=== PATIENT | female | born 1995 | race Caucasian/White ===

== ENCOUNTER 2024-06-19 10:28 | Outpatient (CLI) | payer OTHER, SELFPAY ==
--- NOTE | ~2024-06-19 | US_ITS ---
EXAMINATION: US OB <= 14 weeks fetus DATE: 06/19/2024 14:53 CDT INDICATION: Amenorrhea COMPARISON: 01/10/2024 TECHNIQUE: Real-time transabdominal obstetric ultrasound. FINDINGS: Last muscle. Is given as 04/14/2024 1 Estimated date of delivery by last menstrual period is 01/19/2025 The uterus measures 10.8 x 5.7 x 6.7 cm. A gestational sac is identified within the uterus. A tear shaped focus of decreased echogenicity is identified adjacent to the gestational sac measuring 21 x 6.9 x 18 mm, consistent with a perigestational hemorrhage for which follow-up is suggested. A pole is identified, with a crown-rump length that measures 2.4 cm, corresponding to an approx imate gestational age of 9 weeks and 1 day. A well-formed yolk sac is identified cardiac activity is identified at a rate of 180 bpm. The right ovary measures 2.9 x 2.6 x 3.6 cm. The left ovary measures 4.0 x 2.6 x 2.9 cm. Estimated date of delivery by ultrasound is 01/21/2025 IMPRESSION: Single intrauterine gestation with an approximate gestational age of 9 weeks and 1 day, with ca rdiac activity identified. Small perigestational hemorrhage for which follow-up is suggested. Reviewed, dictated and finalized at location A. IMPRESSION: Single intrauterine gestation with an approximate gestational age of 9 weeks an d 1 day, with cardiac activity identified. Small perigestational hemorrhage for which follow-up is suggested.
== END 2024-06-19 10:29 | disposition home or self-care (01) ==
LOC: MICIMG 10:29
PROVIDERS: PCP Nurse Practitioner Obstetrics & Gynecology; Visit Provider Nurse Practitioner Obstetrics & Gynecology
DX: O46.8X9 Other antepartum hemorrhage, unspecified trimester (principal); N91.2 Amenorrhea, unspecified; Z3A.00 Weeks of gestation of pregnancy not specified
CPT/HCPCS: 76801

== ENCOUNTER 2024-10-15 10:34 | Outpatient (RCR) | payer OTHER, SELFPAY ==
[2024-10-15 10:57] LABS: Hematocrit 36.7 % (37.0-47.0); Hemoglobin 12.3 g/dL (12.0-15.0); Mean Corpuscular HGB Conc 33.5 g/dl (32-36); Mean Corpuscular Hemoglobin 31.1 pg (26-34); Mean Corpuscular Volume 92.7 fl (80-100); Platelet Count Result 234 k/mm3 (150-375); Red Blood Count 3.96 M/mm3 (4.2-5.4); White Blood Count 14.5 K/mm3 (4.5-10.0)
[2024-10-17] MEDS: RHO(D) IMMUNE GLOBULIN 300 MCG/2 ML SYRINGE IM (10:17)
== END 2025-01-13 23:59 | disposition home or self-care (01) ==
LOC: ANHLAB 10:34
PROVIDERS: Visit Provider Obstetrics & Gynecology
DX: Z29.13 Encounter for prophylactic Rho(D) immune globulin (principal); O36.0190 Maternal care for anti-D [Rh] antibodies, unspecified trimester, not applicable or unspecified; Z3A.00 Weeks of gestation of pregnancy not specified
CPT/HCPCS: 36415; 85027; 85461; 86850; 86900; 86901; 90384; J2790

== ENCOUNTER 2024-10-31 08:21 | Outpatient (CLI) | payer OTHER, SELFPAY ==
--- OUTSIDE RECORDS SUMMARY | 2024-10-31 08:30 | XMS_ITS | Clinical Summary ---
Author Organization [facility] Health Address [address] [address] Care Team Providers Care Collection Systems Modeler Name Role Phone Unavailable Primary Care Provider Unavailabl e Source Comments [facility],non-owned Affiliates and Associated Physician Practices is amultiple site organization consisting of ambulatory clinics and hospital sitesin [place], [place], [place] and [place]. This disclosure is being madepursuant to the Care Everywhere program and may not contain all information available regarding this patient. Last updated 17.[facility] Allergies No known active allergies Encounters Date Type Department Care Team Description 09/17/2024 8:12 AM CDT - 09/17/2024 11:59 PM CDT [facility] [address] [place] [phone] Darian Villarreal MD Discharge Disposition: Home or Self Care 08/26/2024 Telephone [facility] [address] [place] [address]51 Ban Abraham RN Results (NIPT) 08/19/2024 11:11 AM CDT - 08/19/2024 11:59 PM CDT Hospital Encounter [facility] [address] [place] [phone] Bayron Colon MD Discharge Disposition: Home or Self Care 08/16/2024 Travel from Last 3 Months Social History Tobacco Use Types Packs/Day Years Used Date Smoking Tobacco: Never Assessed Estimated Date of Delivery Comme nts Yes 01/19/2025 Based on last me nstrual period of 04/14/2024 Sex and Gender Information Value Date Recorded Sex Assigned at Not on file Legal Sex Female 8:17 AM CDT Gender Identity Not on file Sexual Orientation Not on file Plan of Treatment Health Maintenance Due Date Last Done Comments HIV SCREENING 06/09/2010 HEPATITIS C SCREENING 06/05/2013 DTAP/TDAP/TD VACCINES (1 - Tdap) 06/09/2014 HEPATITIS B VACCINE (1 of 3 - 19+ 3-dose series) 06/09/2014 PAP SMEAR 06/09/2016 HPV VACCINE (1 - 3-dose SCDM series) 06/09/2022 COVID-19 VACCINE (1 - 2023-2 5 season) 2023 DEPRESSION SCREENING 04/10/2024 OB-ONE HOUR GLUCOSE 10/13/2024 OB-TDAP CURRENT 10/20/2024 OB-RHOGAM INJECTION 10/27/2024 INFLUENZA VACCINE (#1) 2024 Respiratory Syncytial Virus (RSV) Vaccine Pt: or over 60 yrs (1 - Risk 1-dose series) 12/09/2024 ZOSTER VACCINE (1 of 2) 06/09/2045 HIB VACCINE Aged Out No longer eligi ble based on patient's age to complete this topic MENINGOCOCCAL (Group B) VACC INE SHARED DECISION-MAKING Aged Out No longer eligibl e based on patient's age to complete this topic MENINGOCOCCAL GROUPS A/C/Y/W VACCINE Aged Out No longer eligible b ased on patient's age to complete this topic PNEUMOCOCCAL VACCINE Aged Out No long er eligible based on patient's age to complete this topic Procedures Procedure Name Priority Date/Time Associated Diagnosis Comments SONOGRAM - COMPLETE Routine 09/17/2024 8 :04 AM CDT Encounter for follow-up ultrasound of anatomy (HCC) Encounter for ultrasound to assess growth (HCC) 22 weeks gestation of (HCC) SONOGRAM - COMPLETE Routine 08/19/2024 1 1:05 AM CDT Encounter for anatomic survey (HCC) Abnormal genetic test during from Last 3 Months Results * SONOGRAM - COMPLETE (09/17/2024 8:04 AM CDT) Only the most recent of2 resultswithin the time period is included. Linked Results Indication ======== Incomplete Anatomy Survey History ====== OB History 1. Para 0 Lab Tests Test Date Result NIPT Low risk, Female Maternal Assessment Physical Exam Height 168 cm, 5 ft 6 in. Weight 91 kg, 201 lb. Initial weight 83 kg, 182 lb. BMI 32.44 kg/m . Initial BMI 29.38 kg/m . Weight gain 9 kg, 19 lb Method ====== Transabdominal ultrasound. View: Good view ========= Mancilla . Number of fetuses: 1 Dating ====== Date Details Gest. age YESENIA LMP 04/14/2024 22 w + 2 d 01/19/2025 U/S 09/17/2024 based upon AC, BPD, Femur, HC 22 w + 1 d 01/20/2025 Assigned dating based on the LMP, selected on 08/19/2024 22 w + 2 d 01/19/2025 General Evaluation Cardiac activity present. FHR 134 bpm. Presentation: breech Placenta: Placental site: anterior Umbilical cord: Cord vessels: 3 vessel cord - previously documented. Insertion site: normal insertion - previously documented Amniotic fluid: Amount of AF: normal. MVP 5.7 cm Biometry BPD 52.8 mm 22w 0d 37% Hadlock HC 193.0 mm 21w 4d 12% Hadlock AC 176.2 mm 22w 4d 50% Hadlock Femur 38.5 mm 22w 2d 41% Hadlock HC / AC 1.10 Weight Calculation: EFW 495 g 45% Hadlock EFW (lb,oz) 1 lb 1 oz EFW by Hadlock ([id number]) appropriate Growth Overview Exam date GA BPD (mm) HC (mm) AC (mm) FL (mm) HL (mm) EFW (g) 08/19/2024 18w 1d 39.6 45% 143.9 18% 130.8 63% 27.6 56% 28.5 90% 239 61% 09/17/2024 22w 2d 52.8 37% 193 12% 176.2 50% 38.5 41% 495 45% Anatomy The following structures appear normal: Head / Neck Cranium. Face Lips. Profile. Nose. Heart / Thorax 4-chamber view. RVOT view. LVOT view. 5-kbfduj-kuirqwv view. Bicaval view. Ductal arch view. Interventricular septum. Great vessels. Right lung. Left lung. Abdomen Stomach. Kidneys. Bladder. Genitals. Spine Sacral spine. Extremities / Skeleton Hands. Right arm. Left foot. The following structures were documented previously: Head / Neck Lateral ventricles. Choroid plexus. Midline falx. Cavum septi pellucidi. Cerebellum. Cisterna magna. Heart / Thorax 3-vessel view. Situs. Aortic arch view. Diaphragm. Abdomen Cord insertion. Spine Cervical spine. Thoracic spine. Lumbar spine. Extremities / Skeleton Left arm. Legs. Right foot. sex: female. Impression ========= Single, live, intrauterine at 22w 2d The size & amniotic fluid volume are normal. No malformations were seen within the limitations of ultrasound. Follow-up ======== as clinically indicated Coding ====== Procedures 44850: US Preg Uterus Follow Up [employer] PACS Anatomical Region Laterality Modality Other 09/17/2024 8:04 AM CDT Keenan Sosa MD [facility] ORDERABLES Edited Result - Final from Last 3 Months Insurance [facility]
[2024-10-31 10:35] LABS: Glucose 1 Hour PP 50gm Dose 154 mg/dL
== END 2024-10-31 08:22 | disposition home or self-care (01) ==
LOC: ANHLAB 08:24
PROVIDERS: Visit Provider Obstetrics & Gynecology
DX: Z34.90 Encounter for supervision of normal pregnancy, unspecified, unspecified trimester (principal)
CPT/HCPCS: 36415; 82947

== ENCOUNTER 2024-11-07 07:44 | Outpatient (CLI) | payer OTHER, SELFPAY ==
--- OUTSIDE RECORDS SUMMARY | 2024-11-07 07:48 | XMS_ITS | Clinical Summary ---
Author Organization [facility] Health Address [address] [place] [address] Care Team Providers Care Car Rental Sales Assistant Name Role Phone Unavailable Primary Care Provider Unavailabl e Source Comments [facility],non-owned Affiliates and Associated Physician Practices is amultiple site organization consisting of ambulatory clinics and hospital sitesin [place], [place], [place] and [place]. This disclosure is being madepursuant to the Care Everywhere program and may not contain all information available regarding this patient. Last updated 17.[facility] Allergies No known active allergies Encounters Date Type Department Care Team Description 09/17/2024 8:12 AM CDT - 09/17/2024 11:59 PM CDT Hospital Encounter [facility] Maternal & Care [address] [place] [phone] Darian Villarreal MD Discharge Disposition: Home or Self Care 08/26/2024 Telephone [facility] Maternal & Care [address] [place] [address] [phone] Ban Abraham RN Results (NIPT) 08/19/2024 11:11 AM CDT - 08/19/2024 11:59 PM CDT Hospital Encounter [facility] Maternal & Care [address] [place] [address] [phone] Bayron Colon MD Discharge Disposition: Home or [...] 1 lb 1 oz EFW by Hadlock ([id number]) appropriate Growth Overview Exam date GA BPD [...] Thorax 4-chamber view. RVOT view. LVOT view. 7-diticp-bmiapka view. Bicaval view. Ductal arch view. Interventricular [...] ======== as clinically indicated Coding ====== Procedures [id number]: US Preg Uterus Follow Up [employer] PACS Anatomical Region Laterality Modality Other 09/17/2024 8:04 AM CDT Keenan Sosa MD [facility] ORDERABLES Edited Result - Final from Last 3 Months Insurance [facility]
[2024-11-07 08:15] LABS: Glucose Fasting Gestational 101 mg/dL (>/=95)
[2024-11-07 10:23] LABS: Glucose 1 Hour Gest 135 mg/dL (>/=180)
[2024-11-07 11:31] LABS: Glucose 2 Hour Gest 135 mg/dL (>/= 155)
[2024-11-07 11:59] LABS: Glucose 3 Hour Gest 131 mg/dL (>/=140)
== END 2024-11-07 07:45 | disposition home or self-care (01) ==
LOC: ANHLAB 07:46
PROVIDERS: Visit Provider Nurse Practitioner Obstetrics & Gynecology
DX: Z34.90 Encounter for supervision of normal pregnancy, unspecified, unspecified trimester (principal)
CPT/HCPCS: 36415; 82951; 82952

== ENCOUNTER 2024-12-10 09:32 | Outpatient (CLI) | payer OTHER, SELFPAY ==
--- NOTE | ~2024-12-10 | US_ITS ---
EXAMINATION: US OB follow up w BPP DATE: 12/10/2024 11:36 INDICATION: Nonreactive nonstress test during third trimester . Assess biophysical profile and amniotic fluid index. TECHNIQUE: Real-time pelvic ultrasound was performed. The interpreting radiologist was not present for the study. COMPARISON: None. FINDINGS: There is a single living fetus in vertex presentation. The placenta is anterior and not low-lying. heart rate is 131 beats per minute (bpm). Normal amniotic fluid index of 9.9 cm (5th%-95%: 8.1-24.8 cm at 34 weeks estimated gestational age) Biophysical profile performed by the technologist: breathing (30 sec sustained breathing in 30 minutes): 2 out of 2 movement (3 gross body movements in 30 minutes): 2 out of 2 tone (one episode of gllkrix-obqvuuzgc-bwrpbym limb movement): 2 out of 2 Amniotic fluid pocket (2 cm): 2 out of 2 Total score: 8 out of 8 IMPRESSION: 1. Single living fetus in vertex presentation with heart rate of 131 bpm. 2. Biophysical profile 8 out of 8. 3. Normal amniotic fluid index of 9.9 cm. Reviewed, dictated and finalized at location A.
--- OUTSIDE RECORDS SUMMARY | 2024-12-10 09:50 | XMS_ITS | Clinical Summary ---
Author Organization [facility] Health Address [address] [place] [address] Care Team Providers Care Mass Communications Professor Name Role Phone Unavailable Primary Care Provider Unavailabl e Source Comments [facility],non-owned Affiliates and Associated Physician Practices is amultiple site organization consisting of ambulatory clinics and hospital sitesin [place], [place], [place] and [place]. This disclosure is being madepursuant to the Care Everywhere program and may not contain all information available regarding this patient. 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 Discharge Disposition: Home or Self Care 09/17/2024 8:12 AM CDT - 09/17/2024 11:59 PM CDT Hospital Encounter [facility] Maternal & Care [address] [place] [phone] Darian Villarreal MD Discharge Disposition: Home or Self Care from Last 3 Months Social History Tobacco [...] VACCINE (1 - 3-dose SCDM series) 06/09/2022 DEPRESSION SCREENING 04/10/2024 OB-ONE HOUR GLUCOSE 10/13/2024 OB-TDAP CURRENT 10/20/20242016, 10/14/2005 OB-RHOGAM INJECTION 10/27/2024 COVID-19 VACCINE (3 - 2024-2 6 season) 2024 07/27/2020, 07/05/2020 INFLUENZA VACCINE (#1) 2024 Respiratory Syncytial Virus (RSV) Vaccine Pt: or over 60 yrs (1 - Risk 1-dose series) 12/09/2024 OB-GROUP B STREP SCREEN 12/15/2024 ZOSTER VACCINE (1 of 2) 06/09/2045 HIB VACCINE Aged Out No longer eligi ble based on patient's age to complete this topic MENINGOCOCCAL (Group B) VACCINE SHARED DECISION-MAKING Aged Out No longer eligible based on patient's age to complete this topic MENINGOCOCCAL GROUPS A/C/Y/W VACCINE Aged Out No longer eligible b ased on patient's age to complete this topic PNEUMOCOCCAL VACCINE Aged Out No long er eligible based on patient's age to complete this topic Procedures Procedure Name Priority Date/Time Associated Diagnosis Comments SONOGRAM - COMPLETE Routine 12/06/2024 3 :48 PM CDT Encounter for ultrasound to assess growth (HCC) 33 weeks gestation of (HCC) SONOGRAM - COMPLETE Routine 09/17/2024 8 :04 AM CDT Encounter for follow-up ultrasound of anatomy (HCC) Encounter for ultrasound to assess growth (HCC) 22 weeks gestation of (HCC) from Last 3 Months Results * Sonogram - Complete (12/06/2024 3:48 PM CDT) Only the most recent of2 resultswithin the time period is included. Linked Results Indication ======== Large for dates Size/date discrepancy History ====== OB History 1. Para 0 Lab Tests Test Date Result NIPT Low risk, Female Maternal Assessment Physical Exam Height 168 cm, 5 ft 6 in. Weight 100 kg, 220 lb. Initial weight 83 kg, 182 lb. BMI 35.51 kg/m . Initial BMI 29.38 kg/m . Weight gain 17 kg, 38 lb Method ====== Transabdominal ultrasound. View: Sufficient ========= Mancilla . Number of fetuses: 1 Dating ====== Date Details Gest. age YESENIA LMP 04/14/2024 33 w + 5 d 01/19/2025 Stated YESENIA 33 w + 5 d 01/19/2025 U/S 12/06/2024 based upon AC, BPD, Femur, HC 36 w + 1 d 01/02/2025 Assigned dating based on the LMP, selected on 08/19/2024 33 w + 5 d 01/19/2025 General Evaluation Cardiac activity present. FHR 133 bpm. Presentation: cephalic Placenta: Placental site: anterior no previa Amniotic fluid: Amount of AF: normal. MVP 6.3 cm. RANDALL 18.5 cm. Q1 6.3 cm, Q2 4.2 cm, Q3 4.2 cm, Q4 3.8 cm Biometry BPD 90.8 mm 36w 6d 99% Hadlock HC 327.5 mm 37w 1d 92% Hadlock AC 329.2 mm 36w 6d >99% Hadlock Femur 65.6 mm 33w 6d 42% Hadlock Humerus 57.4 mm 33w 2d 50% Emilio HC / AC 0.99 Weight Calculation: EFW 2,852 g 96% Hadlock EFW (lb,oz) 6 lb 5 oz EFW by Hadlock ([id number]) LGA Growth Overview Exam date GA BPD (mm) HC (mm) AC (mm) FL (mm) HL (mm) EFW (g) 08/19/2024 18w 1d 39.6 45% 143.9 18% 130.8 63% 27.6 56% 28.5 90% 239 61% 09/17/2024 22w 2d 52.8 37% 193 12% 176.2 50% 38.5 41% 495 45% 12/06/2024 33w 5d 90.8 99% 327.5 92% 329.2 >99% 65.6 42% 57.4 50% 2852 96% Anatomy The following structures appear normal: Abdomen Stomach. Kidneys. Bladder. The following structures were documented previously: Head / Neck Cranium. Lateral ventricles. Choroid plexus. Midline falx. Cavum septi pellucidi. Cerebellum. Cisterna magna. Thalami. Nuchal fold. Face Lips. Profile. Nose. Nasal bone. Orbits. Heart / Thorax 4-chamber view. RVOT view. LVOT view. 3-vessel view. 6-qybitd-zosmlrr view. Situs. Aortic arch view. Bicaval view. Ductal arch view. Great vessels. Right lung. Left lung. Diaphragm. Abdomen Cord insertion. Bowel. Genitals. Spine Cervical spine. Thoracic spine. Lumbar spine. Sacral spine. Extremities / Skeleton Arms. Hands. Legs. Feet. sex: female. Impression ========= Here today for interval growth ultrasounds secondary to who size/ dates discrepancy (size greater than dates). As per patient she had a positive 1 hour GCT but -3 hour GTT at her primary OB providers office. Single, live, intrauterine at 33w 5d The size is suspected LGA. The amniotic fluid volume is normal. Normal appearing anterior placenta. No major malformations were seen within the limits of ultrasound. The anatomical survey was previously completed. Comment ======== The biometry is showing good interval growth in the estimated weight of the suspected LGA. This is most likely a constitutionally large fetus in light of her negative glucose screen but GDM can not always be ruled out with certainty. The amniotic fluid was normal and there were good movements noted. Both ultrasound and screening/testing have their limitations in detecting all congenital anomalies and chromosomal abnormalities/inher ited disorders or genetic syndromes. Follow-up ======== To return in 4 weeks for growth assessment due to suspected LGA. Pre term labor and preeclampsia precautions along with kick counts. Thank you for allowing us to partake in your patient's care. Coding ====== Diagnoses O36.63X0: Maternal care for excessive growth Procedures 11061: US Preg Uterus Follow [facility] PACS Anatomical Region Laterality Modality Other 12/06/2024 3:48 PM CDT us Keenan Sosa MD [facility] ORDERABLES Edited Result - Final from Last 3 Months Insurance [facility] Address: [facility] [address] [place] [address]
[2024-12-10 10:04] VITALS: BP 120/73; PULSE 82
[2024-12-10 10:13] LABS: Hematocrit 35.9 % (37.0-47.0); Hemoglobin 12.0 g/dL (12.0-15.0); Immature Granulocyte Percent A 0.7 % (0-0.5); Lymphocytes Absolute Auto 1.93 K/mm3 (0.9-3.2); Mean Corpuscular HGB Conc 33.4 g/dl (32-36); Mean Corpuscular Hemoglobin 30.8 pg (26-34); Mean Corpuscular Volume 92.3 fl (80-100); Nucleated Red Blood Cells Absolute Auto 0.000 K/mm3 (0.0-0.012); Nucleated Red Blood Cells Perc 0.0 % (0.0-0.2); Platelet Count Result 203 k/mm3 (150-375); Red Blood Count 3.89 M/mm3 (4.2-5.4); White Blood Count 11.6 K/mm3 (4.5-10.0)
[2024-12-10 10:16] VITALS: BP 105/75; PULSE 75
[2024-12-10 10:33] LABS: Alanine Aminotransferase 16 U/L (6-35); Albumin Level 3.6 g/dL (3.5-5.1); Alkaline Phosphatase 64 U/L (38-126); Anion Gap 8 mmol/L (4-12); Aspartate Amino Transferase 25 U/L (14-36); Bilirubin,Total < 0.1 mg/dL (0.2-1.3); Blood Urea Nitrogen 3 mg/dL (7-17); Calcium 9.0 mg/dL (8.4-10.2); Carbon Dioxide 19 mmol/L (22-30); Chloride 107 mmol/L (98-107); Estimated Glomerular Filt Rate > 60; Glucose 98 mg/dL (65-110); Potassium 3.8 mmol/L (3.4-5.0); Sodium 134 mmol/L (137-145); Total Protein 6.2 g/dL (6.3-8.2); Uric Acid 5.2 mg/dL (2.5-7.5)
[2024-12-10 10:45] LABS: Total Protein Urine Random 8 mg/dL; Ur Ttl Prot Creatinine Ratio 0.07 mg/mg (0-0.20)
[2024-12-10 10:48] LABS: Add Urine Microscopic? YES; Appearance Urine Cloudy (Clear); Glucose Urine UA Negative (Negative); Leukocyte Esterase Ur 3+ LEU/UL (Negative); Need Manual Microscopic Reviewed; Nitrate Urine Negative (Negative); Specific Grav Ur 1.016 (1.001-1.035)
[2024-12-10 12:54] VITALS: BP 120/73; PULSE 84; BMI 32.3
== END 2024-12-10 11:55 | disposition home or self-care (01) ==
LOC: ANHOBOP 09:36 → ANHOBPP 09:36
PROVIDERS: Visit Provider Obstetrics & Gynecology
DX: O13.9 Gestational [pregnancy-induced] hypertension without significant proteinuria, unspecified trimester (principal); Z3A.00 Weeks of gestation of pregnancy not specified
CPT/HCPCS: 36415; 59025; 76816; 76819; 80053; 81001; 82570; 84156; 84550; 85025; 99199

== ENCOUNTER 2024-12-11 12:52 | Outpatient (NON) | payer OTHER, SELFPAY ==
[2024-12-11 12:52] VITALS: BMI 39.9
[2024-12-11 14:26] LABS: Total Volume 24 Hour Urine 5350 ml
[2024-12-11 14:27] LABS: Total Volume 24 Hour Urine 5350 ml
[2024-12-11 14:37] LABS: Total Protein Urine Random 14 mg/dL
[2024-12-11 14:38] LABS: Creatinine Clearance Urine 204.3 ml/min (75-125); Serum Creat 0.46
[2024-12-11 14:51] LABS: Specific Gravity Ur < 1.010; Total Protein Urine 24 Hr 749 mg/24hr (28-141)
--- OUTSIDE RECORDS SUMMARY | 2024-12-11 14:52 | XMS_ITS | Clinical Summary ---
Author Organization [facility] Health Address [address] [place] [address] Care Team Providers Care Disability Counselor Name Role Phone Unavailable Primary Care Provider Unavailabl e Source Comments [facility],non-owned Affiliates and Associated Physician Practices is amultiple site organization consisting of ambulatory clinics and hospital sitesin [place], [place], [place] and [place]. This disclosure is being madepursuant to the Care Everywhere program and may not contain all information available regarding this patient. 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 RVOT view. LVOT view. 3-vessel view. 4-tvzpaq-cteehkx view. Situs. Aortic arch view. Bicaval view. [...] O36.63X0: Maternal care for excessive growth Procedures 27010: US [facility]us [facility] Anatomical Region Laterality Modality Other 12/06/2024 3:48 PM CDT us Keenan Sosa MD [facility] ORDERABLES Edited Result - Final from Last 3 Months Insurance [facility] Address: [facility] [address] [place] [address]
== END 2024-12-11 12:53 | disposition home or self-care (01) ==
LOC: ANHOBOP 13:39
PROVIDERS: Visit Provider Obstetrics & Gynecology
DX: Z34.90 Encounter for supervision of normal pregnancy, unspecified, unspecified trimester (principal); Z3A.00 Weeks of gestation of pregnancy not specified
CPT/HCPCS: 81050; 82575; 84156

== ENCOUNTER 2024-12-19 15:42 | Outpatient (RCR) | payer OTHER, SELFPAY ==
[2024-12-19 16:18] VITALS: BP 128/60; PULSE 87
== END 2025-01-18 09:34 | disposition other institution (70) ==
LOC: ANHOBOP 15:42
PROVIDERS: Visit Provider Obstetrics & Gynecology
DX: O12.13 Gestational proteinuria, third trimester (principal); Z3A.35 35 weeks gestation of pregnancy
CPT/HCPCS: 59025

== ENCOUNTER 2025-01-13 16:03 | Inpatient (IN) | payer OTHER, SELFPAY ==
[2025-01-13] VITALS (20 sets, daily range): BP systolic 98–141; BP diastolic 53–87; PULSE 78–92; TEMP 36.6–37.1; BMI 35.9
--- OUTSIDE RECORDS SUMMARY | 2025-01-13 16:19 | XMS_ITS | Clinical Summary ---
Author Organization [facility] Health Address [address] [place] [address] Care Team Providers Care Insole Taper Name Role Phone Unavailable Primary Care Provider Unavailabl e Source Comments [facility],non-owned Affiliates and Associated Physician Practices is amultiple site organization consisting of ambulatory clinics and hospital sitesin [place], [place], [place]. This disclosure is being madepursuant to the Care Everywhere program and may not contain all information available regarding this patient. 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 WASHER Discharge Disposition: Home or Self Care from [...] DEPRESSION SCREENING 04/10/2024 OB-ONE HOUR GLUCOSE 10/13/2024 OB-RHOGAM INJECTION 10/27/2024 COVID-19 VACCINE (3 - 2024-2 6 season) 2024 07/27/2020, 07/05/2020 INFLUENZA VACCINE (#1) 2024 OB-GROUP B STREP SCREEN 12/15/2024 ZOSTER VACCINE (1 of 2) 06/09/2045 OB-TDAP CURRENT Completed 2024, 11/02/2016, 10/14/2005 HIB VACCINE Aged Out No longer eligi [...] on patient's age to complete this topic Respiratory Syncytial Virus (RSV) Vaccine Pt: or over 60 yrs (No Doses Required) Completed Procedures Procedure Name Priority Date/Time Associated Diagnosis Comments SONOGRAM - COMPLETE Routine 01/06/2025 3 :34 PM CDT Encounter for ultrasound to assess growth (HCC) 38 weeks gestation of (HCC) SONOGRAM - COMPLETE Routine 12/06/2024 3 :48 PM CDT Encounter for ultrasound to assess growth (HCC) 33 weeks gestation of (HCC) from Last 3 Months Results * Sonogram - Complete (01/06/2025 3:34 PM CDT) Only the most recent of2 resultswithin the time period is included. Linked Results Indication ======== Large for dates History ====== OB History 1. Para 0 Lab Tests Test Date Result NIPT Low risk, Female Maternal Assessment Physical Exam Height 168 cm, 5 ft 6 in. Weight 103 kg, 227 lb. Initial weight 83 kg, 182 lb. BMI 36.64 kg/m . Initial BMI 29.38 kg/m . Weight gain 20 kg, 45 lb Method ====== Transabdominal ultrasound. View: Sufficient ========= Mancilla . Number of fetuses: 1 Dating ====== Date Details Gest. age YESENIA LMP 04/14/2024 38 w + 1 d 01/19/2025 Stated YESENIA 38 w + 1 d 01/19/2025 U/S 01/06/2025 based upon AC, BPD, Femur, HC 40 w + 0 d 01/06/2025 Assigned dating based on the LMP, selected on 08/19/2024 38 w + 1 d 01/19/2025 General Evaluation Cardiac activity present. FHR 153 bpm. Presentation: cephalic Placenta: Placental site: anterior Amniotic fluid: Amount of AF: normal. MVP 6.5 cm. RANDALL 15.4 cm. Q1 5.2 cm, Q2 1.9 cm, Q3 1.9 cm, Q4 6.5 cm Biometry BPD 100.6 mm 41w 3d >99% Hadlock HC 348.5 mm 40w 3d 83% Hadlock AC 359.4 mm 39w 6d 96% Hadlock Femur 75.2 mm 38w 3d 62% Hadlock Humerus 63.6 mm 36w 6d 55% Emilio HC / AC 0.97 Weight Calculation: EFW 3,911 g 93% Hadlock EFW (lb,oz) 8 lb 10 oz EFW by Hadlock ([id number]) LGA Growth Overview Exam date GA BPD (mm) HC (mm) AC (mm) FL (mm) HL (mm) EFW (g) 08/19/2024 18w 1d 39.6 45% 143.9 18% 130.8 63% 27.6 56% 28.5 90% 239 61% 09/17/2024 22w 2d 52.8 37% 193 12% 176.2 50% 38.5 41% 495 45% 12/06/2024 33w 5d 90.8 99% 327.5 92% 329.2 >99% 65.6 42% 57.4 50% 2852 96% 01/06/2025 38w 1d 100.6 >99% 348.5 83% 359.4 96% 75.2 62% 63.6 55% 3911 93% Anatomy The following structures appear normal: Abdomen Stomach. Kidneys. Bladder. sex: female. Impression ========= Single, live, intrauterine at 38w 1d The size is LGA. The amniotic fluid volume is normal. No major malformations were seen within the limits of ultrasound. Comment ======== U/S cannot detect all structural, genetic, or functional , placental, or maternal abnormalities Follow-up ======== Correlate clinically. Coding ====== Diagnoses O36.63X0: Maternal care for excessive growth O36.63X0: Maternal care for excessive growth Procedures 94299: US Preg Uterus Follow Up [facility] [employer] PACS Anatomical Region Laterality Modality Other 01/06/2025 3:34 PM CDT Keenan Sosa MD [facility] ORDERABLES Edited Result - Final from Last [address] [facility]
--- NOTE | 2025-01-13 17:11 | LDADM ---
This patient, Ashley Carrasco, was admitted to Labor/Delivery/Recovery 109 on 01/13/25 at 16:03. Plans for labor, pain management and were discussed with patient. Patient/family oriented to hospital policies and general routines including ID bracelet, bed and alarms, visiting hours, pain management, procedures, bathroom and other care routines, personal items, smoking policy, room service/diet and guest tray routines, infant security routines, and visiting hours. Patient/Family are encouraged to report perceived risks to care and to ask questions if they do not understand what they are told or what they should do. See OBIX for further documentation.
[2025-01-13 17:16] LABS: Hematocrit 34.2 % (37.0-47.0); Hemoglobin 11.7 g/dL (12.0-15.0); Immature Granulocyte Percent A 0.5 % (0-0.5); Lymphocytes Absolute Auto 1.81 K/mm3 (0.9-3.2); Mean Corpuscular HGB Conc 34.2 g/dl (32-36); Mean Corpuscular Hemoglobin 31.0 pg (26-34); Mean Corpuscular Volume 90.7 fl (80-100); Nucleated Red Blood Cells Absolute Auto 0.000 K/mm3 (0.0-0.012); Nucleated Red Blood Cells Perc 0.0 % (0.0-0.2); Platelet Count Result 202 k/mm3 (150-375); Red Blood Count 3.77 M/mm3 (4.2-5.4); White Blood Count 11.5 K/mm3 (4.5-10.0)
[2025-01-13 18:02] LABS: Syphilis IgG/IgM Antibody Non-Reactive (Nonreactive)
[2025-01-14] VITALS (212 sets, daily range): BP systolic 84–156; BP diastolic 45–98; PULSE 63–154; TEMP 36.3–38; O2SAT 94–100
[2025-01-14] MEDS: LACTATED RINGERS 1,000 ML 999 ML IV CONT (00:31)
[2025-01-14] MEDS: OXYTOCIN 30 UNITS/NS 500 ML 30 UNITS/500 ML BAG 6 UNITS IV CONT (07:35)
[2025-01-14] MEDS: fentaNYL CITRATE INJ (*CRX) 100 MCG/2 ML VIAL 50 MCG IV PUSH (12:48)
[2025-01-14] MEDS: LACTATED RINGERS 1,000 ML 125 ML IV CONT ×2 (14:00→20:04)
--- NOTE | 2025-01-14 14:02 | P.PNAN_ITS ---
Anes - Initial Pre Proc Eval Procedure: labor epidural Date/Time: 01/14/25 14:02 Surgeon: Keenan Barkley MD Pre Op Diagnosis: labor pain Pre Op Diagnosis: IOL Patient Data Age: 29 Gender: F Height: 1.68 m Weight: 101 kg Last Vital Signs Temp 36.8 C 01/14/25 09:41 Pulse 78 01/14/25 14:00 BP 135/73 01/14/25 14:00 Pulse Ox 100 01/14/25 13:59 O2 Del Method Room Air 01/13/25 17:06 Allergies Allergy/AdvReac Type Severity Reaction Status Date / Time No Known Allergies Allergy Verified 01/13/25 17:45 Home Medications ?Medication ?Instructions ?Recorded ?Confirmed ?Type docosahexaenoic acid 200 mg mg PO 06/14/24 12/23/24 Hi story capsule ( DHA) RSV vac, preF A and preF B(PF) 120 0.5 ml IM ONCE #1 e a 12/17/24 12/23/24 Rx mcg/0.5 mL IM solution (Abrysvo (PF)) Laboratory Tests 01/13/25 16:17 WBC 11.5 H K/mm3 (4.5-10.0) RBC 3.77 L M/mm3 (4.2-5.4) Hgb 11.7 L g/dL (12.0-15.0) Hct 34.2 L % (37.0-47.0) MCV 90.7 fl (80-100) MCH 31.0 pg (26-34) MCHC 34.2 g/dl (32-36) RDW 13.9 % (11.5-14.5) Plt Count 202 k/mm3 (150-375) MPV 10.3 fl (7.4-10.4) Immature Gran % (Auto) 0.5 % (0-0.5) Neut % (Auto) 75.8 H % (45.5-73.1) Lymph % (Auto) 15.8 L % (18.3-44.2) [place] % (Auto) 5.4 % (2.6-8.5) Eos % (Auto) 2.3 % (0-4.4) Baso % (Auto) 0.2 % (0.2-1.2) Lymph # (Auto) 1.81 K/mm3 (0.9-3.2) [place] # (Auto) 0.6 K/mm3 (0.1-0.6) Eos # (Auto) 0.3 K/mm3 (0-0.3) Baso # (Auto) 0.0 K/mm3 (0.0-0.1) Abs Immat Gran (auto) 0.06 H K/mm3 (0.00-0.031) Absolute Neuts (auto) 8.7 H K/mm3 (1.3-6.7) Absolute Nucleated RBC 0.000 K/mm3 (0.0-0.012) Nucleated RBC % 0.0 % (0.0-0.2) Syphilis IgG/IgM Ab Non-reactive (Nonreactive) Blood Type A Negative Antibody Screen Negative Patient hx anesthesia problems: none Family hx anesthesia problems: none Results Review: All pre-operative results and documents have been reviewed as part of the pre-op erative evaluation. [facility] Family History Family History Grandparent Diabetes mellitus Family history of hypercholesterolemia Hypertension Social History Social History Smoking status: Never smoker Alcohol intake: current Substance use: never Lack of Transportation: No Lack of Food: Never True Current Housing: I Have Housing Concerned About Future Housing: No Difficulty Paying Gas/Electric Bills: No Difficulty Paying for Meds: No Currently Unemployed: No Education: Master's Degree or Higher Difficulty w/ Childcare or Family Care: No Occupation/Education: occupation Gender identity (if verbalized by the patient): Female Sexual Orientation (if Verbalized by the Patient): Straight or Heterosexual Spiritual care concerns: No Anes - Eval Final PreProcedure Day of Procedure 01/14/25 14:02 Patient weight: obese ASA classification: II Anesthetic plan: proceed Anesthesia type and monitoring: regional epidural and standard monitoring Results Review: All pre-operative results and documents have been reviewed as part of the pre- operative evaluation. Informed Consent: The patient's anesthetic plan and its attendant risks and benefits were discussed with the patient/family/POA. Questions were solicited and answers provided to the satisfaction of the patient/family/POA.
[2025-01-14] MEDS: FAMOTIDINE 20 MG/2 ML VIAL IV PUSH (15:30)
--- NOTE | 2025-01-14 16:31 | P.HP_ITS ---
H&P: HPI History of Present Illness Date/Time: 01/14/25 16:31 Chief Complaint: Induction of labor Narrative: patient is a 29-year-old G1 at 39 weeks admitted for medical induction of labor. course significant for LGA. GBS negative. She had an isolated elevated blood pressure once and elevated protein but did not have any elevated pressures after that. She has been counseled regarding risks benefits of induction of labor versus spontaneous onset of labor and agreed with the induction of labor. Review of Systems Review of Systems: All systems reviewed & are unremarkable except as noted in HPI and below Constitutional: Constitutional: Reports no additional constitutional complaints and Denies headache(s) Eyes: Eyes: Denies spots in vision ENT: Reports system reviewed and no additional complaints, except as documented and Denies headache(s) Cardiovascular: Cardiovascular: Denies chest pain and Denies dyspnea Respiratory: Respiratory: Denies dyspnea Gastrointestinal: Gastrointestinal: Reports no additional gastrointestinal complaints Genitourinary: Genitourinary: Reports amenorrhea Musculoskeletal: Musculoskeletal: Reports no additional musculoskeletal complaints Integumentary/Breasts: Skin/Breast: Denies breast mass and Denies rash Neurologic: Denies headache(s) Psychiatric: Psychiatric: Reports no additional psychiatric complaints [facility] Family History Family History Grandparent Diabetes mellitus Family history of hypercholesterolemia Hypertension Social History Social History Smoking status: Never smoker Alcohol intake: current Substance use: never Lack of Transportation: No Lack of Food: Never True Current Housing: I Have Housing Concerned About Future Housing: No Difficulty Paying Gas/Electric Bills: No Difficulty Paying for Meds: No Currently Unemployed: No Education: Master's Degree or Higher Difficulty w/ Childcare or Family Care: No Occupation/Education: occupation Gender identity (if verbalized by the patient): Female Sexual Orientation (if Verbalized by the Patient): Straight or Heterosexual Spiritual care concerns: No Meds Home Medications and Allergies Home Medications ?Medication ?Instructions ?Recorded ?Confirmed ?Type docosahexaenoic acid 200 mg mg PO 06/14/24 12/23/24 Hi story capsule ( DHA) RSV vac, preF A and preF B(PF) 120 0.5 ml IM ONCE #1 e a 12/17/24 12/23/24 Rx mcg/0.5 mL IM solution (Abrysvo (PF)) Allergies Allergy/AdvReac Type Severity Reaction Status Date / Time No Known Allergies Allergy Verified 01/13/25 17:45 Vital Signs Vital Signs - 24 hr 01/13/25 17:06 01/13/25 17:21 01/13/25 17:30 Temperature Pulse Rate 81 81 Blood Pressure 138/82 137/79 Pulse Oximetry Oxygen Delivery Room Air 01/13/25 17:45 01/13/25 18:00 01/13/25 18:15 Temperature 98.8 F Pulse Rate 84 85 89 Blood Pressure 132/79 137/80 138/78 Pulse Oximetry Oxygen Delivery 01/13/25 18:32 01/13/25 18:45 01/13/25 19:00 Temperature Pulse Rate 90 84 84 Blood Pressure 118/87 98/64 L 131/78 Pulse Oximetry Oxygen Delivery 01/13/25 19:15 01/13/25 19:30 01/13/25 19:45 Temperature Pulse Rate 92 86 84 Blood Pressure 137/82 124/75 128/74 Pulse Oximetry Oxygen Delivery 01/13/25 20:00 01/13/25 20:30 01/13/25 21:00 Temperature Pulse Rate 88 83 83 Blood Pressure 125/73 137/79 134/73 Pulse Oximetry Oxygen Delivery 01/13/25 21:30 01/13/25 22:00 01/13/25 22:03 Temperature 98 F Pulse Rate 81 78 Blood Pressure 137/78 125/53 L Pulse Oximetry Oxygen Delivery 01/13/25 22:30 01/13/25 23:00 01/14/25 00:00 Temperature Pulse Rate 86 84 73 Blood Pressure 127/78 141/87 H 136/74 Pulse Oximetry Oxygen Delivery 01/14/25 00:30 01/14/25 01:00 01/14/25 01:30 Temperature 97.9 F Pulse Rate 89 86 71 Blood Pressure 137/80 135/82 141/79 H Pulse Oximetry Oxygen Delivery 01/14/25 02:00 01/14/25 02:30 01/14/25 03:00 Temperature Pulse Rate 78 78 71 Blood Pressure 139/94 H 132/82 131/75 Pulse Oximetry Oxygen Delivery 01/14/25 03:30 01/14/25 04:00 01/14/25 04:30 Temperature Pulse Rate 82 75 76 Blood Pressure 132/85 139/80 122/78 Pulse Oximetry Oxygen Delivery 01/14/25 05:00 01/14/25 05:30 01/14/25 06:00 Temperature Pulse Rate 76 77 73 Blood Pressure 142/86 H 129/82 125/83 Pulse Oximetry Oxygen Delivery 01/14/25 06:30 01/14/25 07:00 01/14/25 07:30 Temperature Pulse Rate 74 72 79 Blood Pressure 135/78 134/82 143/84 H Pulse Oximetry Oxygen Delivery 01/14/25 07:51 01/14/25 08:00 01/14/25 09:41 Temperature 98.3 F 98.2 F Pulse Rate 77 Blood Pressure 156/87 H Pulse Oximetry Oxygen Delivery 01/14/25 11:00 01/14/25 11:31 01/14/25 12:00 Temperature Pulse Rate 84 96 84 Blood Pressure 124/92 H 131/59 L 148/83 H Pulse Oximetry Oxygen Delivery 01/14/25 12:30 01/14/25 13:00 01/14/25 13:30 Temperature Pulse Rate 83 69 84 Blood Pressure 129/67 139/81 137/70 Pulse Oximetry Oxygen Delivery 01/14/25 13:47 01/14/25 13:48 01/14/25 13:53 Temperature Pulse Rate 71 79 Blood Pressure 151/81 H 139/77 Pulse Oximetry 96 97 Oxygen Delivery 01/14/25 13:54 01/14/25 13:57 01/14/25 13:58 Temperature Pulse Rate 73 75 Blood Pressure 139/73 129/70 Pulse Oximetry 99 Oxygen Delivery 01/14/25 13:59 01/14/25 14:00 01/14/25 14:03 Temperature Pulse Rate 78 81 Blood Pressure 135/73 132/68 Pulse Oximetry 100 Oxygen Delivery 01/14/25 14:04 01/14/25 14:06 01/14/25 14:09 Temperature Pulse Rate 80 81 Blood Pressure 126/68 127/71 Pulse Oximetry 100 100 Oxygen Delivery 01/14/25 14:12 01/14/25 14:14 01/14/25 14:15 Temperature Pulse Rate 80 76 Blood Pressure 127/70 130/64 Pulse Oximetry 100 Oxygen Delivery 01/14/25 14:18 01/14/25 14:19 01/14/25 14:21 Temperature Pulse Rate 81 78 Blood Pressure 123/62 126/65 Pulse Oximetry 100 Oxygen Delivery 01/14/25 14:24 01/14/25 14:27 01/14/25 14:29 Temperature Pulse Rate 67 69 Blood Pressure 129/62 127/64 Pulse Oximetry 100 100 Oxygen Delivery 01/14/25 14:30 01/14/25 14:33 01/14/25 14:34 Temperature Pulse Rate 76 71 Blood Pressure 126/74 132/73 Pulse Oximetry 100 Oxygen Delivery 01/14/25 14:36 01/14/25 14:39 01/14/25 14:41 Temperature 97.3 F L Pulse Rate 92 77 Blood Pressure 130/98 H 135/76 Pulse Oximetry 100 Oxygen Delivery 01/14/25 14:42 01/14/25 14:44 01/14/25 14:45 Temperature Pulse Rate 84 82 Blood Pressure 123/57 L 110/60 Pulse Oximetry 99 Oxygen Delivery 01/14/25 14:48 01/14/25 14:49 01/14/25 14:52 Temperature Pulse Rate 83 83 Blood Pressure 128/57 L 118/60 Pulse Oximetry 99 Oxygen Delivery 01/14/25 14:54 01/14/25 14:57 01/14/25 14:59 Temperature Pulse Rate 84 78 Blood Pressure 84/45 L 124/64 Pulse Oximetry 94 100 Oxygen Delivery 01/14/25 15:00 01/14/25 15:03 01/14/25 15:04 Temperature Pulse Rate 86 89 Blood Pressure 128/64 133/65 Pulse Oximetry 100 Oxygen Delivery 01/14/25 15:06 01/14/25 15:09 01/14/25 15:10 Temperature Pulse Rate 85 89 Blood Pressure 117/91 H 141/69 H Pulse Oximetry 96 100 Oxygen Delivery 01/14/25 15:12 01/14/25 15:15 01/14/25 15:20 Temperature Pulse Rate 83 Blood Pressure 139/65 Pulse Oximetry 100 100 Oxygen Delivery 01/14/25 15:25 01/14/25 15:30 01/14/25 15:35 Temperature Pulse Rate Blood Pressure Pulse Oximetry 100 99 100 Oxygen Delivery 01/14/25 15:40 01/14/25 15:45 01/14/25 15:50 Temperature Pulse Rate Blood Pressure Pulse Oximetry 100 100 97 Oxygen Delivery 01/14/25 15:55 01/14/25 16:00 01/14/25 16:05 Temperature Pulse Rate Blood Pressure Pulse Oximetry 100 100 100 Oxygen Delivery 01/14/25 16:10 01/14/25 16:15 01/14/25 16:20 Temperature Pulse Rate Blood Pressure Pulse Oximetry 98 99 100 Oxygen Delivery 01/14/25 16:21 01/14/25 16:24 01/14/25 16:25 Temperature Pulse Rate 73 77 Blood Pressure 118/60 101/69 Pulse Oximetry 100 Oxygen Delivery 01/14/25 16:27 01/14/25 16:30 Temperature Pulse Rate 69 70 Blood Pressure 110/58 L 106/62 Pulse Oximetry 99 Oxygen Delivery Exam Const: General: no acute distress Eyes: General: appearance normal, both eyes and all related structures Resp: Effort & Inspection: normal respiratory effort Cardio: Rate: regular rate GI: Other: Gravid no fundal tenderness no right upper quadrant pain Skin: General skin exam: no rashes or lesions noted Neuro: Cognition (Neuro): normal cognition Extrem: General: normal to inspection Psych: Mental Status: mental status grossly normal H&P: Results Labs Labs: Short CBC 01/13/25 Range/Units 16:17 WBC 11.5 H (4.5-10.0) K/mm3 Hgb 11.7 L (12.0-15.0) g/dL Hct 34.2 L (37.0-47.0) % Plt Count 202 (150-375) k/mm3 Assessment and Plan Assessment and plan (1) Elective induction of labor planned: Status: Acute Assessment and Plan: 1. Cytotec and then Pitocin.
--- NOTE | 2025-01-14 16:36 | PM.OBPNVD ---
OB - PN: Subj Subjective Date/time seen: 01/14/25 16:36 Interval history: heart tones 145 category 1 cervix 1.5/ 50% -2 assisted rupture of membranes clear, continue Pitocin. OB - PN: Obj Data Labs 01/13/25 16:17 Labs: Laboratory Results - last 24 hr 01/13/25 16:17 WBC 11.5 H RBC 3.77 L Hgb 11.7 L Hct 34.2 L MCV 90.7 MCH 31.0 MCHC 34.2 RDW 13.9 Plt Count 202 MPV 10.3 Immature Gran % (Auto) 0.5 Neut % (Auto) 75.8 H Lymph % (Auto) 15.8 L [place] % (Auto) 5.4 Eos % (Auto) 2.3 Baso % (Auto) 0.2 Lymph # (Auto) 1.81 [place] # (Auto) 0.6 Eos # (Auto) 0.3 Baso # (Auto) 0.0 Abs Immat Gran (auto) 0.06 H Absolute Neuts (auto) 8.7 H Absolute Nucleated RBC 0.000 Nucleated RBC % 0.0 Syphilis IgG/IgM Ab Non-reactive Blood Type A Negative Antibody Screen Negative OB - PN A/P Time Spent With Patient Time: Total time spent is greater than 50% in coordination of care (as documented) at patient's floor/unit and/or counseling patient:
[2025-01-14] MEDS: ACETAMINOPHEN 500 MG TABLET 1000 MG PO (21:09)
[2025-01-14] MEDS: CALCIUM CARBONATE (TUMS) 500 MG (200 MG ELEMENTAL) PO (21:10)
[2025-01-14] MEDS: AMPICILLIN SODIUM 2 GM in SODIUM CHLORIDE 0.9% IV 100 ML 200 ML IVPB (21:10)
[2025-01-15] VITALS (84 sets, daily range): BP systolic 93–159; BP diastolic 48–94; PULSE 66–295; RESP 15–20; TEMP 36.5–37; O2SAT 94–100
[2025-01-15] MEDS: ONDANSETRON INJ 4 MG/2 ML VIAL IV PUSH (00:45)
[2025-01-15] MEDS: FAMOTIDINE 20 MG/2 ML VIAL IV PUSH (00:45)
[2025-01-15] MEDS: LACTATED RINGERS 1,000 ML 125 ML IV CONT (00:45)
--- NOTE | 2025-01-15 00:48 | PM.OBPNVD ---
OB - PN: Subj Subjective Date/time seen: 01/15/25 00:48 Interval history: fht 135, cat 2, cervix 6/70/-2. She has had Ampicillin for elevated temperature. Did turn off pitocin for decreased variability. This improved. She did have some swelling at cervix and was given Tums and Benadryl. Pitocin restarted. She was informed of diagnosis of failure to progress and recommendation for delivery via section. Discused risk benefits of section and risk of continuing labor. She agrees with section. OB - PN: Obj Data Labs 01/13/25 16:17 OB - PN A/P Time Spent With Patient Time: Total time spent is greater than 50% in coordination of care (as documented) at patient's floor/unit and/or counseling patient:
[2025-01-15] MEDS: AZITHROMYCIN IV 500 MG in SODIUM CHLORIDE 0.9% IV 250 ML IVPB (01:11)
[2025-01-15] MEDS: ceFAZolin 2 GM in SODIUM CHLORIDE 0.9% IV 50 ML 100 ML IVPB (01:11)
--- NOTE | 2025-01-15 02:41 | W.PM.OBCSD ---
OB - Delivery Note Procedure Delivery date: 01/15/25 Pre-op diagnosis: Arrest of Dilation and Other (Failure to dilate) Post-op Diagnosis: Other (Uterine hypotonia) Induction method: Per Misoprostol Protocol and Per Pitocin Protocol Delivery augmentation: Rupture of Membranes Delivery monitor: External Uterine Prior to decision for section, [facility] labor guidelines were considered and discussed with the patient and staff. Decision made to proceed with the section.: Yes Procedure Performed: Primary Surgeon: Keenan Barkley MD Anesthesia type: Epidural Description of Procedure/Findings: Female 8lb7oz, LOT position , normal fallopian tubes ovaries and uterus. Uterine hypotonia noted. After informed consent, risks and benefits of the procedure was discussed with the patient. The patient was taken to the operating room where she was placed in the dorsal lithotomy position with leftward tilt. After the prior placed epidural anesthesia was found to be adequate, she was then prepped and draped in the usual sterile fashion. A Pfannenstiel skin incision was made with a scalpel and carried through to the underlying layer of fascia. The fascia was then nicked in the midline, extending bilaterally. The fascia was dissected off the rectus muscles bluntly and sharply, superiorly and inferiorly. The rectus muscles were in the midline, and peritoneum was identified and entered bluntly. The pelvic organs were visualized. The bladder blade was then inserted. The vesicouterine peritoneum was identified and entered sharply with Metzenbaum scissors and extended bilaterally and then the bladder flap was created digitally. The low transverse uterine incision was then made with the scalpel and extended with bilateral index fingers in a crescent-shaped fashion. The head was delivered and the rest of the was delivered. the infant was noted to be in the ROT presentation. The nose and mouth suctioned. The cord was clamped twice and cut. The infant was then handed off to the awaiting pediatric staff. The placenta was then delivered manually. The uterine cavity was sponge curetted. the uterus was very hypotonic. She was given Methergine 0.2 mg IM. There was intermittent hypotonia and tranexamic acid was ordered. Tone did improve. The uterus was then exteriorized. The uterine incision was then closed with 0 vicryl in a running locked fashion. A second layer of 0 vicryl was used To close in a locking fashion. She needed several other [id number] sutures and hemostasis was noted. The posterior cul-de-sac was irrigated. The uterus was then returned to the abdomen. Bilateral gutters were cleared off all clots and debris. The uterine incision was noted to be hemostatic. Interceed placed on uterine incision and vertically on front of uterus. The muscle bellies were inspected and noted to be hemostatic. The peritoneum was approximated with 3-0 Vicryl. The subfascial layer was noted to be hemostatic, and the fascia was closed with 0 Vicryl in a running fashion. The subcutaneous layer irrigated was then approximated with 3-0 Vicryl. The skin was closed with 4-0 Vicryl on a Jose Luis needle. Skin dermabond applied at incision. All instruments, needle, and lap counts were correct x3. 1000 mcg of Cytotec was inserted rectally after procedure and clearing of the lower uterine segment of clots. The patient was taken to the recovery room in stable condition. Estimated Blood Loss: 1,450 Urine Output: 600 Drains: No Packing: No Pathology: None sent Complications: No immediate complications Condition: Stable Baby Date of : 01/15/25 gender: Female Weight (pounds): 8 Weight (ounces): 7 presentation: vertex position: Left Occiput Transverse Placenta delivery description: Manual Removal
--- NOTE | 2025-01-15 02:43 | PM.OBDSVD ---
DS: Admitting Diagnosis Discharge Date 01/18/25 Admitting Diagnosis medical induction of labor DS: Discharge Diagnosis Discharge Diagnosis (1) Delivery by section: Status: Acute (2) Failure of cervical dilation: Code(s): O62.0 - Primary inadequate contractions Status: Acute OB - DS: Summary Hospital Course Hospital Course: she was admitted for medical induction of labor. Labor course significant for failure to dilate. She had a primary significant for uterine hypotonia EBL 14 50. Postoperatively she did well she was not symptomatic. She was given IV ferrous sulfate. Post of H/H 11/15/26. She was tolerating regular diet. She had adequate pain control. She was ambulating without difficulty. She was discharged to home on post op day 3. OB Procedures : Ultrasound OB Procedures Intrapartum: OB Procedures: : None Peripartum Data Delivery Method: Section Procedures: Procedures Operation Date: 01/15/25 00:40 <No data on this case meets the specified criteria> complications: none Status at Discharge Functional status at discharge: independent ambulation Time Spent with Patient Time attestation: Total time spent providing and/or coordinating discharge services: Exam Const: General: cooperative Orientation/consciousness: oriented to person, oriented to place and oriented to time HENMT: Face/Nose/Sinus: Normal external nose present Eyes: General: appearance normal, both eyes and all related structures Resp: Effort & Inspection: normal respiratory effort GI: Inspection: normal to inspection Skin: General skin exam: normal color Neuro: General: oriented to person, oriented to place and oriented to time Extrem: General: normal to inspection and no calf tenderness Psych: Appearance: grossly normal Mental Status: mental status grossly normal Discharge Plan Discharge Attending physician on discharge: Keenan Barkley Consulting providers: Clifford Dunne; Fior Petersen; Shanti Krause Discharging Clinician: Moreno Grady Anticipated Discharge Date/Time: 01/18/25 13:30 Patient Disposition: Home Activity: may shower, no driving and pelvic rest Diet: regular Discharge Instructions: Education: Mom and Baby Guide Given to: Mother Follow-Up: Call your delivering provider's office for an appointment to be seen in: Call for an appointment Mom and baby should come to the [facility] for the follow-up appointment. Appointment Date/Time: January 21, 2025 at 9:00 am What to expect at your follow-up visit: Blood Pressure Check Physical Assessment Call [phone] if you are unable to keep your appointment time. BREAST CARE: * Wear a snug supportive bra. * For engorgement discomfort: Breast Feeding: * Apply warm moist washcloths * Express milk as needed to relieve engorgement * Wear loose clothing Bottle Feeding: * May apply ice packs * For sore nipples: * Identify correct latch-on * Apply warm moist washcloths before and after nursing * Air dry nipples after nursing * May apply Lansinoh cream to nipples ABDOMINAL INCISION: * Allow incision to air dry * Do NOT use lotions for powders on your incision * When showering, allow soap and water to run over the incision, but do not wash incision PERINEAL CARE: * Until bleeding stops, use your hailee bottle after urinating * Change your pad frequently throughout the day * You may take sitz baths several times a day (fill your bathtub with warm water and soak for 20 minutes.) Do NOT bathe in the water * No tub baths until seen by your physician - You may shower ACTIVITY: * Rest as much as possible. * Do not exercise or lift anything heavier than your baby (such as laundry or other children.) * Avoid stairs or driving as much as possible. * Do not put anything into the vagina. No douching, tampons, or sexual activity until seen by physician. NOTIFY PHYSICIAN IF YOU HAVE ANY QUESTIONS OR IF ANY OF THE FOLLOWING SYMPTOMS OCCUR: * If your incision becomes red, swollen, or more painful than what you have experienced in the hospital. * If your vaginal bleeding becomes foul smelling. * If your vaginal bleeding becomes more heavy than a period or if your bleeding changes from pink to bright red. However, you may pass an occasional walnut-sized clot once or twice for the first week . * If you experience a sharp, shooting pain in you calves. * If you discover a hard, reddened area on your breast or if you experience flu-like symptoms. DIET: * Eat regular, well-balanced meals. * Drink plenty of fluids daily. If , drink to thirst. Call or return if temperature above 100.4? F, increased abdominal pain, increased vaginal bleeding or any new problems. Patient Instructions: Antibiotic Form Patient Language: Slovak Stand Alone Forms: General Discharge Information Follow-up/Referrals: Keenan Barkley MD [Physician, IMPLEMENTATION TECHNICIAN] - 2 Weeks Referral Note: Call to schedule appointment Discharge Medications: New oxycodone 5 mg Tablet 5 mg PO Q4H PRN (Reason: Pain Rated 4-6) Qty: 20 0RF Continued DHA 200 mg capsule PO Discontinued Abrysvo (PF) 120 mcg/0.5 mL recon soln 0.5 ml IM ONCE Qty: 1 0RF Rx Instructions: as a single dose Date of admission: 01/13/25 16:03 Primary Care Provider: PHYSICIAN,DESIGN ENGINEER [employer] Admitting Provider: Keenan Barkley Attending physician on admission: Moreno Grady Condition: Stable
[2025-01-15] MEDS: OXYTOCIN 30 UNITS/NS 500 ML 30 UNITS/500 ML BAG 125 UNITS IV CONT (03:39)
--- NOTE | 2025-01-15 05:08 | OBPPTRN ---
Patient transferred to post room #284 via stretcher. Support person present. Oriented to unit, room, information board, rooming in, admission packet and security measures. Patient verbalizes understanding.
[2025-01-15] MEDS: KETOROLAC 15 MG/ML VIAL (*BKC) IV PUSH ×3 (05:15→17:01)
[2025-01-15] MEDS: ACETAMINOPHEN 500 MG TABLET 1000 MG PO ×4 (05:15→23:10)
[2025-01-15] MEDS: SIMETHICONE 80 MG TAB.CHEW PO ×3 (08:45→17:01)
[2025-01-15] MEDS: ceFAZolin 1 GM in SODIUM CHLORIDE 0.9% IV 50 ML 100 ML IVPB ×2 (08:46→17:01)
[2025-01-15] MEDS: DOCUSATE SODIUM 100 MG CAPSULE PO ×2 (08:46→17:01)
[2025-01-15] MEDS: MULTIVIT/MIN/PREN/FOL AC/IRON TABLET 1 TAB PO (08:46)
[2025-01-15] MEDS: IRON SUCROSE COMPLEX 400 MG, IRON SUCROSE COMPLEX 100 MG in SODIUM CHLORIDE 0.9% IV 250 ML 78.57 MG IVPB (09:31)
--- NOTE | 2025-01-15 12:00 | PC.NURSE ---
0615 Mother called CLC to room to assist with latching infant for the first time and to assess her needs related to . Discussed with mother her concerns and any questions she has. We reviewed working with the , supporting breast, protecting her nipples with an optimal deep latch, good positioning, and good hand washing. Encouraged understanding the benefits of skin to skin, responding to feeding cues, frequencies of feeding 8-12 times in 24 hours (approximately 2-3 hours), duration of feedings, milk production, intake/output feeding sheet and signs of adequate intake encouraging swallowing at the breast. Reviewed positioning and alignment, supporting breast, off-centered (asymmetrical latch) and leading with the chin with big, open, wide gape. Infant latched optimally to the [right] breast in [cross cradle] position. Education given to the mother of how to visualize the suckling (with good rocking jaw motion) swallows (dropping of the lower jaw) and how to listen for drinking at the breast (the ka sound). The infant was [able] to maintain latch without discomfort to mother. Nipple care reviewed with optimal latch, good positioning and using clean hands when touching her breast. Resources used to facilitate learning were used from the [visual handouts/ tool/mom and baby guide]. Mother voiced understanding of the education shared, to call for assistance if the infant does not latch or if there is discomfort with . Reported to the Primary RN. 1200 Mother called CLC RN to room, infant had last had a feeding at 0935 for 5 minutes and then had a few drops of colostrum around 1130, mother wondering if they should wake infant at this time. is not showing any feeding cues at this time and is sleeping. Mother to watch for feeding cues and put infant skin to skin within the next hour, call out for any assistance. Reported to Primary RN.
[2025-01-15] MEDS: KCL 20 MEQ/D5/0.45% SOD CHL 1,000 ML 125 ML IV CONT (12:50)
--- NOTE | 2025-01-15 15:30 | WPDANLDPN2 ---
Anes-Prog Note L&D Date/Time: 01/15/25 15:30 Comfortable throughout: section Neuraxial method: epidural Epidural/Spinal procedure site: clean & non-tender Neuro status: Neuro function grossly intact. Cardiovascular status: normal Respiratory status: normal Airway patency: baseline Mental status: baseline Post-Op hydration status: normal Vital Signs: Last Vital Signs Temp 36.6 C 01/15/25 12:51 Pulse 73 01/15/25 12:51 Resp 16 01/15/25 12:51 BP 101/52 L 01/15/25 12:51 Pulse Ox 98 01/15/25 12:51 O2 Del Method Room Air 01/15/25 11:15 Pain score (VAS): 2 I/O: Intake & Output 01/14/25 01/15/25 01/15/25 23:59 07:59 15:59 Intake Total 1000 1000 0 Output Total 600 6591 1250 Balance 400 -2801 -1250 Post-procedural complaints: none Patient feedback: Patient satisfied with anesthetic care.
--- NOTE | 2025-01-15 15:31 | WPDANLDNPN2 ---
Anes-Prog Note L&D-Neuraxial Date/Time: 01/15/25 15:31 Neuraxial medications: intrathecal PF morphine Opiod-related complaints: none Patient feedback: Patient satisfied with post-operative pain management.
[2025-01-15] MEDS: IBUPROFEN 600 MG TABLET PO (23:10)
[2025-01-16] MEDS: ceFAZolin 1 GM in SODIUM CHLORIDE 0.9% IV 50 ML 100 ML IVPB (01:21)
[2025-01-16] MEDS: ACETAMINOPHEN 500 MG TABLET 1000 MG PO ×4 (05:09→22:11)
[2025-01-16] MEDS: IBUPROFEN 600 MG TABLET PO ×4 (05:09→22:11)
[2025-01-16 05:18] LABS: Hematocrit 27.2 % (37.0-47.0); Hemoglobin 8.8 g/dL (12.0-15.0); Immature Granulocyte Percent A 0.8 % (0-0.5); Lymphocytes Absolute Auto 1.47 K/mm3 (0.9-3.2); Mean Corpuscular HGB Conc 32.4 g/dl (32-36); Mean Corpuscular Hemoglobin 31.1 pg (26-34); Mean Corpuscular Volume 96.1 fl (80-100); Nucleated Red Blood Cells Absolute Auto 0.000 K/mm3 (0.0-0.012); Nucleated Red Blood Cells Perc 0.0 % (0.0-0.2); Platelet Count Result 168 k/mm3 (150-375); Red Blood Count 2.83 M/mm3 (4.2-5.4); White Blood Count 14.0 K/mm3 (4.5-10.0)
[2025-01-16 08:25] VITALS: BP 101/65; PULSE 73; RESP 16; TEMP 36.8; O2SAT 97
[2025-01-16] MEDS: DOCUSATE SODIUM 100 MG CAPSULE PO ×2 (09:00→16:50)
[2025-01-16] MEDS: SIMETHICONE 80 MG TAB.CHEW PO ×3 (09:01→16:50)
[2025-01-16] MEDS: MULTIVIT/MIN/PREN/FOL AC/IRON TABLET 1 TAB PO (09:01)
--- NOTE | 2025-01-16 09:44 | P.PNOB_ITS ---
OB - PN: Subj Subjective Date/time seen: 01/16/25 09:44 Interval history: fht 135, cat 2, cervix 6/70/-2. She has had Ampicillin for elevated temperature. Did turn off pitocin for decreased variability. This improved. She did have some swelling at cervix and was given Tums and Benadryl. Pitocin restarted. She was informed of diagnosis of failure to progress and recommendation for delivery via section. Discused risk benefits of section and risk of continuing labor. She agrees with section. Narrative: Pain OK. Tolerating diet. OB - PN: Obj Data Labs 01/16/25 04:23 Labs: Laboratory Results - last 24 hr 01/16/25 04:23 WBC 14.0 H RBC 2.83 L Hgb 8.8 L Hct 27.2 L MCV 96.1 D MCH 31.1 MCHC 32.4 RDW 14.4 Plt Count 168 MPV 10.5 H Immature Gran % (Auto) 0.8 H Neut % (Auto) 81.6 H Lymph % (Auto) 10.5 L Clinch % (Auto) 5.2 Eos % (Auto) 1.6 Baso % (Auto) 0.3 Lymph # (Auto) 1.47 Clinch # (Auto) 0.7 H Eos # (Auto) 0.2 Baso # (Auto) 0.0 Abs Immat Gran (auto) 0.11 H Absolute Neuts (auto) 11.4 H Absolute Nucleated RBC 0.000 Nucleated RBC % 0.0 OB - PN A/P Plan day: 1 Comments: A: POD#1, doing well. P: Routine care. Exam 2 Narrative: AVSS I/O OK ABD soft, nontender, fundus firm. Incision c/d/i. EXT nontender
--- NOTE | 2025-01-16 10:45 | PC.NURSE ---
Mother verbalizes she is able to independently latch with appropriate positioning and alignment. She denies any nipple discomfort and is responsively . Infant is currently meeting outcomes for weight, output, jaundice, blood sugar and feeding frequencies of 8-12 times in 24 hours. Mother declines any additional assistance or education at this time. Mother is encouraged to call for assistance if her infant doesn?t latch, pain with latching, questions or concerns. Mother voiced understanding of information shared along with the mom/baby guide for an additional resource. Reported to the Primary RN.
--- NOTE | 2025-01-16 14:41 | WPDANLDPN2 ---
Anes-Prog Note L&D Date/Time: 01/16/25 14:41 Comfortable throughout: section Neuraxial method: epidural Epidural/Spinal procedure site: clean & non-tender Neuro status: Neuro function grossly intact. Cardiovascular status: normal Respiratory status: normal Airway patency: baseline Mental status: baseline Post-Op hydration status: normal Vital Signs: Last Vital Signs Temp 36.8 C 01/16/25 08:25 Pulse 73 01/16/25 08:25 Resp 16 01/16/25 08:25 BP 101/65 01/16/25 08:25 Pulse Ox 97 01/16/25 08:25 O2 Del Method Room Air 01/15/25 23:15 Pain score (VAS): 0 I/O: Intake & Output 01/15/25 01/16/25 01/16/25 23:59 07:59 15:59 Intake Total 50 240 Output Total 1600 900 1 Balance -1550 -900 239 Post-procedural complaints: none Patient feedback: Patient satisfied with anesthetic care.
[2025-01-16 18:45] VITALS: BP 126/65; PULSE 71; RESP 16; TEMP 36.4; O2SAT 99
[2025-01-17] MEDS: ACETAMINOPHEN 500 MG TABLET 1000 MG PO ×3 (04:16→19:54)
[2025-01-17] MEDS: IBUPROFEN 600 MG TABLET PO ×3 (04:16→19:54)
[2025-01-17 07:20] VITALS: BP 130/75; PULSE 78; RESP 18; TEMP 37.1; O2SAT 97
[2025-01-17] MEDS: MULTIVIT/MIN/PREN/FOL AC/IRON TABLET 1 TAB PO (08:26)
[2025-01-17] MEDS: SIMETHICONE 80 MG TAB.CHEW PO ×3 (08:27→16:48)
[2025-01-17] MEDS: DOCUSATE SODIUM 100 MG CAPSULE PO ×2 (08:27→16:48)
--- NOTE | 2025-01-17 08:58 | P.PNOB_ITS ---
OB - PN: Subj Subjective Date/time seen: 01/17/25 08:58 Interval history: fht 135, cat 2, cervix 6/70/-2. She has had Ampicillin for elevated temperature. Did turn off pitocin for decreased variability. This improved. She did have some swelling at cervix and was given Tums and Benadryl. Pitocin restarted. She was informed of diagnosis of failure to progress and recommendation for delivery via section. Discused risk benefits of section and risk of continuing labor. She agrees with section. Narrative: Pain OK. Tolerating diet. OB - PN: Obj Data Labs 01/16/25 04:23 OB - PN A/P Plan day: 2 Comments: A: POD#2, doing well. P: Routine care. Plan home tomorrow. Exam 2 Narrative: AVSS I/O OK ABD soft, nontender, fundus firm. Incision c/d/i. EXT nontender
--- NOTE | 2025-01-17 12:30 | PC.NURSE ---
Introductions were made, then consulted with patient to assess needs related to . Discussed with mother her?plans to feed?her and the?experience so far. She feels like is going well and doesn't have any questions or concerns at this time. She is encouraged to call out for assistance with waking baby, latching, or if any other issues arise. Resources provided for inpatient and outpatient services with the feeding sheet, mom/baby guide and name written on the communication board. Mother voiced understanding of information and will call if there is a request for assistance. Reported to the Primary RN.
[2025-01-17 19:10] VITALS: BP 139/76; PULSE 78; RESP 16; TEMP 36.6; O2SAT 100
[2025-01-18] MEDS: IBUPROFEN 600 MG TABLET PO ×3 (02:23→14:00)
[2025-01-18] MEDS: ACETAMINOPHEN 500 MG TABLET 1000 MG PO ×3 (02:24→14:00)
[2025-01-18 07:58] VITALS: BP 141/81; PULSE 71; RESP 16; TEMP 36.8; O2SAT 98
[2025-01-18] MEDS: SIMETHICONE 80 MG TAB.CHEW PO (08:18)
[2025-01-18] MEDS: DOCUSATE SODIUM 100 MG CAPSULE PO (08:20)
[2025-01-18] MEDS: MULTIVIT/MIN/PREN/FOL AC/IRON TABLET 1 TAB PO (08:20)
--- NOTE | 2025-01-18 11:26 | P.PNOB_ITS ---
OB - PN: Subj Subjective Date/time seen: 01/18/25 11:26 Narrative: Pain OK. Tolerating diet. Baby needs to stay another day or two. She'd like to be discharged. OB - PN: Obj Data Labs 01/16/25 04:23 OB - PN A/P Plan day: 3 Comments: A: POD#3, doing well. P: Home to f/u 4 weeks. Exam 2 Narrative: AVSS ABD soft, nontender, fundus firm. Incision c/d/i. EXT nontender
--- NOTE | 2025-01-18 11:41 | PC.NURSE ---
Introductions were made, then consulted with patient to assess needs related to . Discussed with mother her?plans to feed?her and the?experience so far. Per mother infant is feeding well at the breast and with the bottle, she feels like her breasts feel granda today then they have before. Infant has an order to supplement with at least 15 mls of pumped breast milk and/or formula after each feeding due to weight loss, jaundice levels are also elevated. Mother is going to a No Care Bed, she is going to go home for a few hours, she will bring her own breast pump back and start pumping after feeds. Resources provided for inpatient and outpatient services with the feeding sheet, mom/baby guide and name written on the communication board. Mother voiced understanding of information and will call if there is a request for assistance. Reported to the Primary RN.
[2025-01-21 08:52] VITALS: BP 135/81; PULSE 77; RESP 18; TEMP 37; O2SAT 100
--- NOTE | 2025-02-05 21:42 | WPDHPUPDATE1 ---
History and Physical Update Update Date/Time: 02/05/25 21:42 History and Physical has been reviewed, including an updated exam of the patient. There are NO changes in the patient's condition. Risks, benefits, and alternatives have been discussed and questions answered. Patient agrees to proceed with procedure.
== END 2025-01-18 14:05 | disposition home or self-care (01) | DRG 787 ==
LOC: ANHOB2 01-18 13:31 → ANHLDR 01-21 10:39
PROVIDERS: Admitting Provider Obstetrics & Gynecology; Visit Provider Obstetrics & Gynecology
PROC: 10D00Z1 Extraction of Products of Conception, Low, Open Approach (ICD-10-PCS; CPT 59514; principal; 2025-01-15 00:40)
DX: O36.63X0 Maternal care for excessive fetal growth, third trimester, not applicable or unspecified (principal); O75.2 Pyrexia during labor, not elsewhere classified; Z3A.39 39 weeks gestation of pregnancy; Z37.0 Single live birth; O62.1 Secondary uterine inertia; O62.2 Other uterine inertia
CPT/HCPCS: 36415; 85025; 86593; 86850; 86900; 86901; J0690; A9270; J0290; J0456; J1200; J1756; J1885; J2175; J2210; J2274; J2405; J2590; J2795; J3010; J3290; J3480; J7050; J7120

== ENCOUNTER 2025-01-22 13:59 | Outpatient (CLI) | payer OTHER, SELFPAY ==
[2025-01-22 14:56] LABS: Add Urine Microscopic? YES; Appearance Urine Clear (Clear); Glucose Urine UA Negative (Negative); Leukocyte Esterase Ur 2+ LEU/UL (Negative); Nitrate Urine Negative (Negative); Non Pathogenic Casts 0-2; Specific Grav Ur 1.006 (1.001-1.035)
--- OUTSIDE RECORDS SUMMARY | 2025-01-22 16:16 | XMS_ITS | Clinical Summary ---
Author Organization [facility] Health Address [address] [place] [address] Care Team Providers Care Chemical Blender Name Role Phone Unavailable Primary Care Provider Unavailabl e Source Comments [facility],non-owned Affiliates and Associated Physician Practices is amultiple site organization consisting of ambulatory clinics and hospital sitesin [place], [place], [place] and [place]. This disclosure is being madepursuant to the Care Everywhere program and may not contain all information available regarding this patient. Last updated 17.[facility] Allergies No known active allergies Encounters Date Type Department Care Team Description 01/06/2025 3:12 PM CDT - 01/06/2025 11:59 PM CDT Hospital Encounter [facility] [address] [place] [id number] Darian Villarreal MD Discharge Disposition: Home or Self Care 12/18/2024 Travel 12/06/2024 3:10 PM CDT - 12/06/2024 11:59 PM CDT Hospital Encounter [facility] [address] [place] [id number] Parminder Fritz DO [employer] Discharge Disposition: Home or Self Care from [...] 8 lb 10 oz EFW by [facility] ([id number]) LGA Growth Overview Exam date [place] BPD [...] O36.63X0: Maternal care for excessive growth Procedures 01982: US Preg Uterus Follow Up [facility] [email or web address] PACS Anatomical Region Laterality Modality Other 01/06/2025 3:34 PM CDT Keenan Sosa MD [facility] ORDERABLES Edited Result - Final from Last 3 Months Insurance [facility]
== END 2025-01-22 14:00 | disposition home or self-care (01) ==
LOC: ANHLAB 14:00
PROVIDERS: Visit Provider Nurse Practitioner Obstetrics & Gynecology
DX: R39.9 Unspecified symptoms and signs involving the genitourinary system (principal)
CPT/HCPCS: 81001; 87077; 87086; 87186